=== PATIENT | male | born 1955 | race Caucasian/White ===

== ENCOUNTER 2020-12-13 20:47 | Inpatient (IN) ==
[2020-12-14] MEDS ORDERED: Naloxone 0.4 MG/ML INJ IVP PRN (00:38)
[2020-12-14] MEDS ORDERED: Ondansetron 4 MG/2 ML VIAL IVP PRN (00:38)
[2020-12-14] MEDS: 0.9 % Sodium Chloride 1,000 ML IVC SCH ×2 (01:01→12:27)
[2020-12-14] MEDS ORDERED: Haloperidol Lactate 5 MG/ML VIAL IVP ONE (02:30)
[2020-12-14 07:43] LABS: Basophils # 0.1 K/mcL (0.0-0.2); Basophils % 0.7 %; Eosinophils # 0.5 K/mcL (0.0-0.6); Eosinophils % 5.1 %; Hematocrit 46.5 % (37.5-50.1); Hemoglobin 15.8 g/dL (12.9-16.9); Immature Granulocytes % 0.4 % (0-4); Lymphocytes # 1.9 K/mcL (0.6-4.6); Lymphocytes % 20.8 %; Mean Corpuscular Hemoglobin 29.6 pg (28.0-33.3); Mean Corpuscular Volume 87.1 fL (83.0-100.0); Mean Platelet Volume 10.6 fL (9.4-12.4); Monocytes # 0.9 K/mcL (0.0-1.3); Monocytes % 9.8 %; Neutrophils # 5.7 K/mcL (1.6-8.9); Platelet Count 232 K/mcL (140-400); Red Blood Count 5.34 M/mcL (4.19-5.50); Red Cell Distribution Width 15.3 % (11.5-14.5); Segmented Neutrophils % 63.2 %
[2020-12-14 07:59] LABS: INR 1.2; Prothrombin Time 13.4 Seconds (9.4-12.1)
[2020-12-14 08:12] LABS: Alanine Aminotransferase 35 Units/L (7-52); Albumin/Globulin Ratio 1.7 (1.1-2.2); Alkaline Phosphatase 42 Units/L (34-104); Aspartate Amino Transferase 35 Units/L (13-39); BUN/Creatinine Ratio 19 (6-26); Bilirubin,Total 0.8 mg/dL (0.3-1.0); Blood Urea Nitrogen 18 mg/dL (8-23); Calcium 8.8 mg/dL (8.6-10.3); Carbon Dioxide 24 mEq/L (23-29); Chloride 106 mEq/L (98-107); Globulin 2.4 g/dL (2.4-3.5); Glucose 79 mg/dL (70-105); Magnesium 1.9 mg/dL (1.6-2.6); Osmolality,Calculated 289 (280-300); Phosphorous 2.5 mg/dL (2.7-4.5); Potassium 4.4 mEq/L (3.5-5.1); Sodium 139 mEq/L (136-145); Total Protein 6.4 g/dL (6.4-8.9); eGFR For African Americans > 60 (> 60); eGFR For Non-African Americans > 60 (> 60)
[2020-12-14] MEDS ORDERED: Ipratropium/Albuterol Neb 3 ML IH PRN (09:16)
[2020-12-14 09:52] LABS: Folate 13.3 ng/mL (3.0-16.0)
[2020-12-14] MEDS: amLODIPine 5 MG TABLET PO SCH (11:56)
[2020-12-14] MEDS ORDERED: *HR* LORazepam 0.5 MG TABLET PO PRN (13:26)
[2020-12-14] MEDS: Gabapentin 300 MG CAPSULE PO SCH ×2 (14:20→20:32)
[2020-12-14] MEDS: *HR* Rivaroxaban 10 MG TABLET PO SCH (14:20)
[2020-12-14] MEDS: Acetaminophen 325 MG TABLET PO PRN (16:56)
[2020-12-14] MEDS: Latanoprost 2.5 ML BOTTLE BOTH EYES SCH (16:57)
[2020-12-14] MEDS: Melatonin 3 MG TABLET PO SCH (20:32)
[2020-12-14] MEDS: Ofloxacin *EAR* Drops 5 ML BOTTLE LEFT EAR SCH (20:32)
[2020-12-14] MEDS: rOPINIRole 0.25 MG TABLET PO SCH (20:32)
[2020-12-14] MEDS: Cholestyramine 4 GM POWD.PACK PO SCH (20:32)
[2020-12-14] MEDS: Divalproex (12 HR) 250 MG TABLET PO SCH (20:33)
[2020-12-14] MEDS: traZODone 50 MG TABLET PO SCH (20:33)
[2020-12-14] MEDS ORDERED: CIMETIDINE 400 MG PO SCH (21:00)
[2020-12-15] MEDS: Acetaminophen 325 MG TABLET PO PRN (06:30)
[2020-12-15] MEDS: Loratadine 10 MG TABLET PO SCH (07:42)
[2020-12-15] MEDS: Famotidine 20 MG TABLET PO SCH (07:42)
[2020-12-15] MEDS: PARoxetine 20 MG TABLET PO SCH (07:42)
[2020-12-15] MEDS: amLODIPine 5 MG TABLET PO SCH (07:42)
[2020-12-15] MEDS: *HR* Rivaroxaban 10 MG TABLET PO SCH (07:42)
[2020-12-15] MEDS: Divalproex (12 HR) 250 MG TABLET PO SCH ×2 (07:43→20:57)
[2020-12-15] MEDS: Cholestyramine 4 GM POWD.PACK PO SCH ×2 (07:43→20:57)
[2020-12-15] MEDS: Gabapentin 300 MG CAPSULE PO SCH ×3 (07:43→20:57)
[2020-12-15] MEDS ORDERED: Tiotropium 10 INH DOSE IH ONE (07:49)
[2020-12-15] MEDS: Tiotropium 10 INH DOSE IH SCH (09:23)
[2020-12-15] MEDS: Budesonide/Formoterol 80/4.5 1 PUFF INH IH SCH ×2 (09:23→21:34)
[2020-12-15] MEDS: Cefdinir 300 MG CAPSULE PO SCH ×2 (14:10→20:57)
[2020-12-15] MEDS: Latanoprost 2.5 ML BOTTLE BOTH EYES SCH (16:48)
[2020-12-15] MEDS: traZODone 50 MG TABLET PO SCH (20:57)
[2020-12-15] MEDS: rOPINIRole 0.25 MG TABLET PO SCH (20:57)
[2020-12-15] MEDS: Melatonin 3 MG TABLET PO SCH (20:57)
[2020-12-15] MEDS: Ofloxacin *EAR* Drops 5 ML BOTTLE LEFT EAR SCH (20:58)
[2020-12-16] MEDS: Budesonide/Formoterol 80/4.5 1 PUFF INH IH SCH (07:51)
[2020-12-16] MEDS: Tiotropium 10 INH DOSE IH SCH (07:51)
[2020-12-16 08:01] LABS: Basophils # 0.1 K/mcL (0.0-0.2); Basophils % 0.7 %; Eosinophils # 0.7 K/mcL (0.0-0.6); Eosinophils % 7.1 %; Hematocrit 44.6 % (37.5-50.1); Hemoglobin 14.9 g/dL (12.9-16.9); Immature Granulocytes % 0.5 % (0-4); Lymphocytes # 2.2 K/mcL (0.6-4.6); Lymphocytes % 21.8 %; Mean Corpuscular HGB Conc 33.4 g/dL (31.6-35.5); Mean Corpuscular Hemoglobin 29.3 pg (28.0-33.3); Mean Corpuscular Volume 87.6 fL (83.0-100.0); Mean Platelet Volume 11.4 fL (9.4-12.4); Monocytes # 1.1 K/mcL (0.0-1.3); Monocytes % 11.4 %; Neutrophils # 5.9 K/mcL (1.6-8.9); Platelet Count 244 K/mcL (140-400); Red Blood Count 5.09 M/mcL (4.19-5.50); Red Cell Distribution Width 15.4 % (11.5-14.5); Segmented Neutrophils % 58.5 %
[2020-12-16] MEDS: PARoxetine 20 MG TABLET PO SCH (08:13)
[2020-12-16] MEDS: Cholestyramine 4 GM POWD.PACK PO SCH (08:13)
[2020-12-16] MEDS: *HR* Rivaroxaban 10 MG TABLET PO SCH (08:13)
[2020-12-16] MEDS: Cefdinir 300 MG CAPSULE PO SCH (08:13)
[2020-12-16] MEDS: Divalproex (12 HR) 250 MG TABLET PO SCH (08:13)
[2020-12-16] MEDS: amLODIPine 5 MG TABLET PO SCH (08:13)
[2020-12-16] MEDS: Gabapentin 300 MG CAPSULE PO SCH ×2 (08:13→18:18)
[2020-12-16] MEDS: Loratadine 10 MG TABLET PO SCH (08:13)
[2020-12-16] MEDS: Famotidine 20 MG TABLET PO SCH (08:13)
[2020-12-16 08:27] LABS: BUN/Creatinine Ratio 25 (6-26); Blood Urea Nitrogen 24 mg/dL (8-23); Calcium 9.1 mg/dL (8.6-10.3); Carbon Dioxide 26 mEq/L (23-29); Chloride 107 mEq/L (98-107); Glucose 92 mg/dL (70-105); Osmolality,Calculated 296 (280-300); Sodium 141 mEq/L (136-145); eGFR For African Americans > 60 (> 60); eGFR For Non-African Americans > 60 (> 60)
[2020-12-16 15:44] VITALS: BP 133/76
[2020-12-16] MEDS: Latanoprost 2.5 ML BOTTLE BOTH EYES SCH (18:18)
== END 2020-12-16 19:40 | DRG 884 ==
LOC: INPPIK
PROVIDERS: ADMIT Student in an Organized Health Care Education/Training Program; ATTEND Student in an Organized Health Care Education/Training Program